=== PATIENT | female | born 1940 | race Caucasian/White ===

== ENCOUNTER → 2016-08-31 | Outpatient (CLI) | payer MEDICARE, OTHER ==
--- NOTE | 2016-08-31 21:15 | MRI ---
MRI left knee without contrast INDICATION: Medial meniscal tear initial encounter recurrent injury TECHNIQUE: Noncontrast MR imaging left knee standard protocol FINDINGS: There is grade 3 chondral fissuring at the patellar apex. Vague grade 3-4 chondrosis in the medial trochlea. Large joint effusion. Intact extensor tendons. Diffuse mucoid degeneration of the ACL indicating previous high-grade partial tear. Similar interstitial previous partial tear of the PCL. There is a diffuse ill-defined relatively horizontal degenerative tear throughout the medial meniscus with free edge fraying throughout and mild volume loss. Multilocular para meniscal cyst formation or less likely ganglion along the medial joint line. Minimal degenerative change lateral meniscus. There is also ganglion/para meniscal cyst formation in the anterior intercondylar region near the central anterior horn medial meniscus. There is diffuse chondrosis up to grade 4 with joint space narrowing medial tibiofemoral compartment with medial extrusion of the medial meniscus. Minimal osteophyte formation lateral tibiofemoral compartment. 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 Electronically signed by: Fabian Skelton MD 08/31/2016 9:13 PM CDT
== END | disposition home or self-care (01) ==
LOC: MRI 08:59
PROVIDERS: ATTEND Specialist
DX: S83.232A Complex tear of medial meniscus, current injury, left knee, initial encounter (principal)

== ENCOUNTER → 2016-12-08 | Outpatient (CLI) | payer MEDICARE, OTHER ==
--- NOTE | 2016-12-10 10:53 | MAM ---
EXAM DESCRIPTION: 3D Screening BILATERAL : Digital Mammography. CLINICAL HISTORY: 76 years Female SCREENING . No complaints. Remote family history of ovarian cancer. Postmenopausal. Currently on HRT. COMPARISON: 2-D digital screening bilateral studies 01/08/2014 and 01/05/2013. No prior reports available. TECHNIQUE: Bilateral CC and MLO projection full-field images, 3-D tomosynthesis digital mammographic technique. Also bilateral synthesized CC/ MLO full-field images. CAD not utilized. FINDINGS: The breast parenchymal density pattern is: Scattered areas of fibroglandular density. No skin thickening or nipple retraction bilateral vascular calcifications. Bilateral solitary microcalcifications. No focal, stellate mass or density, focal asymmetry , and no suspicious microcalcifications bilaterally. Except for minimal increase in calcifications, stable mammograms compared to prior study, December 2012, taking into account differences in mammographic technique IMPRESSION: BI-RADS CATEGORY: 2 - BENIGN FINDINGS. FOLLOW UP: Routine digital bilateral screening, one year interval from November 2016. Written communication explaining the IMPRESSION and follow-up, will be mailed to the patient and referring health care provider. According to the [employer], yearly mammograms are recommended starting at age 40 and continuing as long as a woman is in good health. Any breast change noted on a breast self-exam should be reported promptly to the patient's healthcare provider. Breast MRI is recommended for women with an approximately 20-25% or greater lifetime risk of breast cancer, including women with a strong family history of breast or ovarian cancer and women who have been treated for Hodgkin's disease. A negative mammographic report should not delay tissue diagnosis in patients with significant clinical history or physical findings. Extremely dense breast tissue limits the sensitivity of digital mammography. Electronically signed by: Chucky Landin MD 12/10/2016 10:52 AM CDT
== END ==
LOC: MAMMO 10:49
PROVIDERS: ATTEND Family Medicine
DX: Z12.31 Encounter for screening mammogram for malignant neoplasm of breast (principal)
CPT/HCPCS: 77063; G0202

== ENCOUNTER → 2017-08-26 | Outpatient (CLI) | payer OTHER | LOC: GMAH 16:30 | PROVIDERS: ATTEND Family Medicine | DX: D50.8 Other iron deficiency anemias (principal); R53.82 Chronic fatigue, unspecified; R53.81 Other malaise; R53.1 Weakness ==

== ENCOUNTER → 2017-12-16 | Outpatient (CLI) | payer OTHER ==
--- NOTE | 2017-12-17 11:29 | MAM ---
EXAM DESCRIPTION: 3D Screening BILATERAL : Digital Mammography. CLINICAL HISTORY: 77 years Female SCREENING . No complaints. No personal or family history of breast cancer. Remote family history of ovarian cancer. Childbirth. Postmenopausal almost 30 years. Currently on HRT. Lifetime risk of developing breast cancer (Tyrer-Cuzick model)(%): 3.4 COMPARISON: Bilateral screening digital breast tomosynthesis 12/08/2016. TECHNIQUE: Bilateral CC and MLO projection full-field images, Digital tomosynthesis mammographic technique. Bilateral digital 2-D full-field MLO images. CAD not utilized. FINDINGS: The breast parenchymal density pattern is: Scattered areas of fibroglandular density. No skin thickening or nipple retraction. . Right axillary lymph nodes. Bilateral vascular calcifications. Bilateral solitary microcalcifications and coarse calcifications. No new focal, stellate mass or density, focal asymmetry , and no suspicious microcalcifications bilaterally. Stable mammograms compared to prior study. IMPRESSION: Benign exam. BIRAD CATEGORY: 2 BENIGN FINDINGS. RECOMMENDATIONS: FOLLOW UP: Routine digital bilateral screening, one year interval from November 2017. Written communication explaining the IMPRESSION and follow-up, will be mailed to the patient and referring health care provider. According to the [employer], yearly mammograms are recommended starting at age 40 and continuing as long as a woman is in good health. Any breast change noted on a breast self-exam should be reported promptly to the patient's healthcare provider. Breast MRI is recommended for women with an approximately 20-25% or greater lifetime risk of breast cancer, including women with a strong family history of breast or ovarian cancer and women who have been treated for Hodgkin's disease. A negative mammographic report should not delay tissue diagnosis in patients with significant clinical history or physical findings. Extremely dense breast tissue limits the sensitivity of digital mammography. Electronically signed by: Chucky Landin MD 12/17/2017 11:28 AM CDT
== END ==
LOC: MAMMO 09:30
PROVIDERS: ATTEND Family Medicine
DX: Z12.31 Encounter for screening mammogram for malignant neoplasm of breast (principal)

== ENCOUNTER → 2018-02-04 | Outpatient (CLI) | payer OTHER ==
--- NOTE | 2018-02-05 06:38 | US ---
EXAM DESCRIPTION: Renal: Ultrasound. CLINICAL HISTORY: 77 years Female N18.4 COMPARISON: Bilateral renal arterial Doppler evaluation on the same visit. TECHNIQUE: Transcutaneous scanning: Two-dimensional and Doppler modes. FINDINGS: Right kidney measures 10.5 x 4.1 x 4.8 cm; mid-renal cortical thickness 11.2 mm. . Normal cortical echogenicity. No hydronephrosis No echogenic stones. Smooth contour of the kidney with no perinephric fluid. Normal vascularity. Proximal ureter not visualized. Left kidney measures 9.8 x 5.1 x 5.1 cm; mid-renal cortical thickness 12.7 mm. Normal cortical echogenicity. No hydronephrosis. No echogenic stones. Lobulated contour of the kidney with no perinephric fluid. Normal vascularity.. Proximal ureter not visualized. Urinary bladder not visualized. Abdominal aorta diameter not measured. IMPRESSION: 1. Normal size of the right kidney with minimal cortical thinning. Normal cortical echogenicity and smooth capsule. Otherwise unremarkable. 2. Minimal cortical thinning in the left kidney and decreased size relative to the right kidney. Lobulated contour of the capsule. Less echogenic than the liver and spleen. No hydronephrosis. Electronically signed by: Chucky Landin MD 02/05/2018 6:36 AM [facility]
== END ==
LOC: US 08:41
PROVIDERS: ATTEND Internal Medicine Nephrology
DX: N18.4 Chronic kidney disease, stage 4 (severe) (principal)

== ENCOUNTER 2018-09-26 05:58 | Day surgery (SDC) | payer OTHER ==
[2018-09-26] MEDS ORDERED: LACTATED RINGERS 1,000 ML ONE (08:59)
[2018-09-26] MEDS ORDERED: DEXAMETHASONE INJ 10 MG/ML VIAL IV ONE (10:00)
[2018-09-26] MEDS ORDERED: PROPOFOL 200 MG/20 ML VIAL IV ONE (10:00)
[2018-09-26] MEDS ORDERED: LIDOCAINE 1% 10 ML VIAL INJ ONE (10:00)
[2018-09-26] MEDS ORDERED: BUPIVACAINE 0.5% W/EPI 30 ML VIAL INJ ONE (10:07)
[2018-09-26] MEDS ORDERED: HEPARIN SODIUM 100 U/ML 5 ML SYG IV ONE (10:07)
[2018-09-26] MEDS ORDERED: SODIUM CHLORIDE 0.9% 50 ML VIAL ONE (10:07)
[2018-09-26] MEDS ORDERED: KETAMINE HCL 100 MG/ML VIAL ONE (10:08)
[2018-09-26] MEDS ORDERED: MIDAZOLAM INJ 2 MG/2 ML VIAL ONE (10:09)
[2018-09-26] MEDS ORDERED: fentaNYL CITRATE INJ 50 MCG/ML AMP ONE (10:09)
[2018-09-26] MEDS ORDERED: ceFAZolin SODIUM 1 GM VIAL ONE (10:28)
[2018-09-26] MEDS ORDERED: SODIUM CHL 0.9% 50ML MIN-BAG+ 50 ML IVPB ONE (10:29)
--- NOTE | 2018-09-26 11:38 | OP ---
DATE OF PROCEDURE: 09/26/18 PREOPERATIVE DIAGNOSIS: 1. Multiple myeloma. POSTOPERATIVE DIAGNOSIS: 1. Multiple myeloma. PROCEDURE: 1. Placement of Port-A-Cath, right internal jugular approach with ultrasound guidance. 2. Access of Port-A-Cath. SURGEON: Andres Savage MD. ANESTHESIA: General and local. FINDINGS: There was excellent position of catheter on fluoroscopy and good flow. The port was accessed also without difficulty and flushed with heparinized saline. COMPLICATIONS: None. ESTIMATED BLOOD LOSS: None. CONDITION: Stable. PLAN: Discharge. INDICATION: The patient presented with multiple myeloma in need of venous access for chemotherapy. She was consented. PROCEDURE: General anesthesia was induced. She was prepped and draped in sterile fashion. 0.5% Marcaine with epinephrine was used along the incision sites. The ultrasound was used to identify the dominant jugular vein. A single stick was necessary to access the vein with withdrawal of nice, dark blood. The wire was then introduced without difficulty. Fluoroscopy confirmed proper position of the wire. We then prepared the chest site. I made a cut lateral to the wire and undermined to allow for curvature of the catheter. The introducer dilator was then placed and removed as the trimmed catheter was placed over the wire without difficulty. We confirmed proper position of the tip at about 15 cm at the neck. It was then mated to the tunnel and tunneled down to the port pocket site. It was then flush, flowing nicely, trimmed, mated and then locked into the port with the supplied lock mechanism. It was then placed into the pocket. A final x-ray was performed which revealed no kinking of the catheter at the chest and the tip was in good position. It was secured medially with a single Prolene suture. There was good flow. The access needle was then introduced. Again, good withdrawal of dark blood. It was then flushed with heparinized saline solution. She tolerated the procedure well. The wounds were closed in 2 layers with Vicryl and the access remained in place. She was then awakened and taken to Recovery to be discharged. #[id number]
[2018-09-26 12:30] VITALS: BP 137/74; TEMP 97.4; O2SAT 96
--- NOTE | 2018-09-27 09:50 | RAD ---
PROVIDED CLINICAL HISTORY/REASON FOR EXAM: PORT PLACEMENT Findings/impression: One intraoperative fluoroscopic image of a chest wall port placement. Tip location unable to be determined. Dose: Not provided Time: Less than one hour Electronically signed by: Dariel Coronado MD 09/27/2018 9:48 AM CDT
== END 2018-09-26 12:35 | disposition home or self-care (01) ==
LOC: AMB 05:58
PROVIDERS: ATTEND Surgery
DX: C90.00 Multiple myeloma not having achieved remission (principal); Z90.710 Acquired absence of both cervix and uterus; Z96.651 Presence of right artificial knee joint
CPT/HCPCS: 00532; 36416; 36561; 76000; 82948; A4216; C1788; J0690; J1100; J1642; J2250; J3010; J3490; J7050; J7120

== ENCOUNTER → 2018-10-28 | Outpatient (CLI) | payer OTHER | LOC: LAB.O 07:15 | PROVIDERS: ATTEND Internal Medicine Nephrology | DX: I10 Essential (primary) hypertension (principal) ==

== ENCOUNTER 2019-01-30 05:10 | Day surgery (SDC) | payer OTHER ==
[2019-01-30] MEDS ORDERED: MIDAZOLAM INJ 2 MG/2 ML VIAL ONE (10:57)
[2019-01-30] MEDS ORDERED: BRIMONIDINE 0.2% OPHTH DROPS RIGHT_EYE ONE (10:58)
[2019-01-30] MEDS ORDERED: PROPARACAINE 0.5% OPHTH SOL 15 ML BTTL RIGHT_EYE ONE (10:58)
[2019-01-30] MEDS ORDERED: TOBRAMYCIN SULF 0.3 % OPHT SOL 1 DROP RIGHT_EYE ONE (10:58)
[2019-01-30] MEDS ORDERED: DEXAMETHASONE 0.1% OPHTH SOL 1 DROP RIGHT_EYE ONE (10:58)
[2019-01-30] MEDS ORDERED: LIDOCAINE 1% 2 ML VIAL INJ ONE (11:09)
[2019-01-30] MEDS ORDERED: MOXIFLOXACIN HCL (OPHTH) 1 DROP DROPS RIGHT_EYE ONE (11:09)
== END 2019-01-30 11:55 | disposition home or self-care (01) ==
LOC: AMB 05:10
PROVIDERS: ATTEND Ophthalmology
DX: E11.36 Type 2 diabetes mellitus with diabetic cataract (principal); H25.041 Posterior subcapsular polar age-related cataract, right eye; Z79.899 Other long term (current) drug therapy
CPT/HCPCS: 00142; 36416; 66984; 82948; J2250

== ENCOUNTER 2019-02-20 05:28 | Day surgery (SDC) | payer OTHER ==
[2019-02-20] MEDS ORDERED: MIDAZOLAM INJ 2 MG/2 ML VIAL ONE (10:10)
[2019-02-20] MEDS: PROPARACAINE 0.5% OPHTH SOL 15 ML BTTL LEFT_EYE ONE (10:14)
[2019-02-20] MEDS: LIDOCAINE 1% MPF 2 ML VIAL INJ ONE (10:20)
[2019-02-20] MEDS: DEXAMETHASONE 0.1% OPHTH SOL 1 DROP LEFT_EYE ONE ×2 (10:25→10:33)
[2019-02-20] MEDS: MOXIFLOXACIN HCL (OPHTH) 1 DROP DROPS LEFT_EYE ONE ×2 (10:25→10:33)
[2019-02-20] MEDS: TOBRAMYCIN SULF 0.3 % OPHT SOL 1 DROP LEFT_EYE ONE ×2 (10:25→10:33)
[2019-02-20] MEDS: BRIMONIDINE 0.2% OPHTH DROPS LEFT_EYE ONE ×2 (10:26→10:33)
== END 2019-02-20 13:23 | disposition home or self-care (01) ==
LOC: AMB 05:28
PROVIDERS: ATTEND Ophthalmology
DX: E11.36 Type 2 diabetes mellitus with diabetic cataract (principal); H25.042 Posterior subcapsular polar age-related cataract, left eye; Z79.899 Other long term (current) drug therapy
CPT/HCPCS: 00142; 36416; 66984; 82948; J2250

== ENCOUNTER 2020-02-13 11:20 | Emergency (ER) | payer OTHER ==
[2020-02-13 11:40] VITALS: TEMP 97.7
--- NOTE | 2020-02-13 12:17 | RAD ---
EXAM DESCRIPTION: Chest,1 View CLINICAL HISTORY: feeling poorly after covid 14 days COMPARISON: Chest radiograph dated July 17, 2018 TECHNIQUE: One view radiograph of the chest FINDINGS: Right [id number] with distal tip projecting over the SVC. Cardiac silhouette shows normal heart size. Pulmonary vascularity is within normal limits. Interval resolution of left upper lobe consolidation. Minimal linear opacity in the right lung base most compatible with atelectasis. Otherwise, lungs show no confluent infiltrates. No significant pleural effusion. No pneumothorax. Degenerative changes of the thoracic spine. IMPRESSION: 1. Interval resolution of left upper lobe consolidation. 2. Minimal right basilar atelectasis. Otherwise, lungs show no confluent infiltrates. 3. Other findings as above. Electronically signed by: Nacho Carmichael MD 02/13/2020 12:15 PM [facility]
[2020-02-13] MEDS ORDERED: INSULIN DETEMIR 100 UNITS/ML PEN SUBCU ONE (12:46)
[2020-02-13] MEDS ORDERED: SODIUM CHLORIDE 0.9% 1000ML 1,000 ML IVS ONE (12:46)
--- NOTE | 2020-02-13 13:39 | ED.PDOC ---
History of Present Illness - General Chief Complaint: General Stated Complaint: COVID+,fever,nausea Time Seen by Provider: 02/13/20 11:41 Source: patient Exam Limitations: no limitations - History of Present Illness Initial Comments: The patient is a 79-year-old female presented emergency room secondary to feeling dehydrated and simply not feeling good. She does have long-term gastrointestinal upset that is been made a little bit worse the coronavirus. She was apparently diagnosed with coronavirus on the eighth of this month. She does take every other day dexamethasone for her other long-term medical processes. She does likely have some mild adrenal insufficiency. Blood sugars have been more elevated than normal since increasing her dexamethasone dose to every other day. She is not short of breath and does not have a significant cough. No real urinary symptoms. No syncope. Timing/Duration: unsure Severity: moderate Improving Factors: nothing Worsening Factors: nothing Associated Symptoms: loss of appetite, malaise, nausea/vomiting, weakness Allergies/Adverse Reactions: Allergies Bacitracin [From Neosporin] Allergy (Unknown, Verified 02/20/19 09:33) Methotrexate Allergy (Unknown, Verified 02/20/19 09:33) Morphine Allergy (Unknown, Verified 02/20/19 09:33) Neomycin [From Neosporin] Allergy (Unknown, Verified 02/20/19 09:33) Polymyxin B [From Neosporin] Allergy (Unknown, Verified 02/20/19 09:33) Enoxaparin [From Lovenox] Allergy (Verified 02/20/19 09:33) Dha Ethyl Michelle [From Omacor] Adverse Reaction (Unknown, Verified 02/20/19 09:33) Ezetimibe [From Zetia] Adverse Reaction (Unknown, Verified 02/20/19 09:33) Fenofibrate Adverse Reaction (Unknown, Verified 02/20/19 09:33) Gemfibrozil Adverse Reaction (Unknown, Verified 02/20/19 09:33) Icosapent Ethyl [From [place]or] Adverse Reaction (Unknown, Verified 02/20/19 09:33) Leflunomide [From Arava] Adverse Reaction (Unknown, Verified 02/20/19 09:33) Linagliptin [From Tradjenta] Adverse Reaction (Unknown, Verified 02/20/19 09:33) Losartan Adverse Reaction (Unknown, Verified 02/20/19 09:33) Meloxicam Adverse Reaction (Unknown, Verified 02/20/19 09:33) Metoprolol [From Toprol XL] Adverse Reaction (Unknown, Verified 02/20/19 09:33) Niacin [From Niaspan] Adverse Reaction (Unknown, Verified 02/20/19 09:33) Oienb-0-Pbnh Ethyl Esters [From [place]or] Adverse Reaction (Unknown, Verified 02/20/19 09:33) Pantoprazole [From Protonix] Adverse Reaction (Unknown, Verified 02/20/19 09:33) Peanut-containing Drug Products Adverse Reaction (Unknown, Verified 02/20/19 09:33) Soybean Oil [From [place]or] Adverse Reaction (Unknown, Verified 02/20/19 09:33) Vitamin E [From [place]] Adverse Reaction (Unknown, Verified 02/20/19 09:33) Statins Adverse Reaction (Verified 02/20/19 09:33) Tomato Adverse Reaction (Verified 02/20/19 09:33) DECONGESTANTS Adverse Reaction (Unknown, Uncoded 02/20/19 09:33) HYDROXICHLOR Adverse Reaction (Unknown, Uncoded 02/20/19 09:33) SULPHASALAZINE Adverse Reaction (Unknown, Uncoded 02/20/19 09:33) Home Medications: Ambulatory Orders Dexamethasone 4 mg PO JA-OTH-DAY 07/14/18 Glipizide 10 mg PO BID 07/14/18 Acetaminophen 1 tablet PO BEDTIME PRN 09/26/18 Multiple Vitamins W/ Minerals [Multivitamin Adults] 1 tab PO DAILY 09/26/18 Famciclovir 250 mg PO BID 01/30/19 Ondansetron HCl [Zofran] 4 mg PO PRN PRN 01/30/19 Promethazine HCl 25 mg PO PRN PRN 01/30/19 Acetaminophen [Tylenol] 325 mg PO PRN 02/13/20 Bioflavonoid Products [Michelle-C] 1 tab PO DAILY 02/13/20 Carvedilol [Coreg] 3.125 mg PO BID 02/13/20 Ciprofloxacin [Cipro] 500 mg PO BID #10 tab 02/13/20 Cyanocobalamin Inj [Vitamin B-12 Inj] 1,000 mcg IM .[id number] 02/13/20 Daratumumab [Darzalex] 100 mg IV .[id number] 02/13/20 Guaifenesin [Mucinex] 600 mg PO PRN 02/13/20 Insulin Detemir [Levemir] 12 unit SUBCU ACBK #2 pen 02/13/20 Loperamide HCl 2 mg PO PRN 02/13/20 diphenhydrAMINE HCL [Benadryl] 25 mg PO PRN 02/13/20 Review of Systems - Review of Systems Constitutional: States: malaise EENTM: States: no symptoms reported Respiratory: States: no symptoms reported Cardiology: States: no symptoms reported Gastrointestinal/Abdominal: States: nausea Genitourinary: States: no symptoms reported Musculoskeletal: States: see HPI - She does have chronic arthralgias and myalgias Skin: States: no symptoms reported Neurological: States: no symptoms reported Endocrine: States: no symptoms reported All other Systems: No Change from Baseline Past Medical History (General) - Patient Medical History Hx Seizures: No Hx Stroke: No Hx Asthma: No Hx of COPD: No Hx Cardiac Disorders: Yes Hx Congestive Heart Failure: No Hx Pacemaker: No Hx Hypertension: No Hx Diabetes: Yes Hx Renal Disease: Yes - Stage 3 Hx MRSA: No MRSA Source:: TEST Surgical History: Hysterectomy - Vaccination History Hx Influenza Vaccination: Yes Hx Pneumococcal Vaccination: Yes - Social History Hx Tobacco Use: No Hx Alcohol Use: No Hx Substance Use: No Hx Physical Abuse: No Hx Emotional Abuse: No Family Medical History - Family History Mother Hx Family Asthma: No Hx Family Congestive Heart Failure: No Hx Family Hypertension: No Hx Family Stroke: No Hx Cardiac Disease: No Hx Family Diabetes: No Hx Family Cancer: No Father Hx Family Asthma: No Hx Family Congestive Heart Failure: No Hx Family Hypertension: Yes Hx Family Stroke: No Hx Cardiac Disease: No Hx Family Diabetes: No Hx Family Cancer: No Physical Exam - Physical Exam General Appearance: Alert, No apparent distress Eye Exam: bilateral normal Ears, Nose, Throat: hearing grossly normal, normal pharynx Neck: full range of motion, supple Respiratory: lungs clear, normal breath sounds, no respiratory distress, no accessory muscle use Cardiovascular/Chest: normal peripheral pulses, regular rate, rhythm - Borderline tachycardia, no edema Peripheral Pulses: radial,right: 2+, radial,left: 2+ Gastrointestinal/Abdominal: non tender, soft Rectal Exam: deferred Extremity: no pedal edema, no calf tenderness, normal capillary refill, other - Chronic arthritic changes and pain associated with it along with chronic limitations to range of motion due to arthritis Neurologic: performance engineer II-XII nml as tested, alert, normal mood/affect, oriented x 3 Skin Exam: normal color Comments: Vital Signs - 24 hr 02/13/20 02/13/20 02/13/20 11:33 12:16 12:17 Temperature 97.7 F Pulse Rate [ 113 H 92 H 107 H Right Brachial] Respiratory 20 Rate Blood Pressure 180/105 146/79 128/83 [Right Arm] O2 Sat by Pulse 95 Oximetry 02/13/20 13:16 Temperature Pulse Rate [ 95 H Right Brachial] Respiratory 16 Rate Blood Pressure 136/89 [Right Arm] O2 Sat by Pulse 92 L Oximetry Progress - Progress Progress: 02/13/20 13:41 The patient is a 79-year-old female presenting secondary to generalized worsening of symptoms since her diagnosis of coronavirus on the eighth of this month. The patient does have some dehydration and is receiving a liter of IV fluids. She also has significant hypoglycemia. She is going to be written for the Levemir and I want her to start taking 12 units each morning with breakfast. Hopefully this will provide better blood sugar control than the short acting insulin she has been taking. Additionally the patient does likely have some mild adrenal insufficiency and I am going to have her start taking her dexamethasone alternating 4 mg and 2 mg daily for at least the next week and 1/2 to 2 weeks. Hopefully this will help reduce symptoms of mild steroid deficiency. She does of course need to monitor blood sugars fairly closely. Keep well-hydrated. Keep follow-up with primary care doctor and specialist as previously scheduled. She does have a small urinary tract infection is going to be placed on low-dose ciprofloxacin for 5 days. She does need to have a repeat urinalysis in about a week. ER warnings are given. bradley delgado [phone] - Results/Orders Results/Orders: 02/13/20 11:45 EKG STAT normal sinus rhythm at 95 bpm. Normal axis. Normal R wave progression. No ST segment or T wave changes indicative of acute ischemia. Possible mild left atrial dilation. Borderline prolonged QT interval. Chest x-ray shows significant improvement since the one from 2019. No obvious acute active processes. See report for details. Laboratory Results - last 24 hr 12/02/13/20 02/13/20 12:05 12:05 12:05 WBC 6.8 RBC 4.11 L Hgb 12.6 Hct 36.9 MCV 89.7 MCH 30.7 MCHC 34.3 RDW 13.9 Plt Count 364 MPV 7.1 L Absolute Neuts (auto) 5.80 Absolute Lymphs (auto) 0.70 L Absolute Monos (auto) 0.20 Absolute Eos (auto) 0.00 Absolute Basos (auto) 0.00 Neutrophils % 85.5 H Lymphocytes % 10.7 L Monocytes % 3.1 Eosinophils % 0.1 L Basophils % 0.6 Sodium 132 L Potassium 4.3 Chloride 96 L Carbon Dioxide 19 L Anion Gap 21.3 H BUN 15 Creatinine 1.00 BUN/Creatinine Ratio 15.0 Random Glucose 326 H Serum Osmolality 278.0 Lactic Acid 1.9 Calcium 8.8 Magnesium 2.0 Total Bilirubin 1.0 AST 28 ALT 36 Alkaline Phosphatase 90 Creatine Kinase 20 L CK-MB (CK-2) 1.0 CK-MB (CK-2) % Not Reportable Troponin I < 0.02 B-Natriuretic Peptide 107.0 H Serum Total Protein 7.2 Albumin 3.4 Globulin 3.8 H Albumin/Globulin Ratio 0.9 L Amylase 38 Lipase 28 TSH 0.64 Urine Color Urine Appearance Urine pH Ur Specific [place] Urine Protein Urine Glucose (UA) Urine Ketones Urine Blood Urine Nitrite Urine Bilirubin Urine Urobilinogen Ur Leukocyte Esterase Urine RBC Urine WBC Ur Epithelial Cells Amorphous Sediment Urine Bacteria Urine Mucus 02/13/20 12:55 WBC RBC Hgb Hct MCV MCH MCHC RDW Plt Count MPV Absolute Neuts (auto) Absolute Lymphs (auto) Absolute Monos (auto) Absolute Eos (auto) Absolute Basos (auto) Neutrophils % Lymphocytes % Monocytes % Eosinophils % Basophils % Sodium Potassium Chloride Carbon Dioxide Anion Gap BUN Creatinine BUN/Creatinine Ratio Random Glucose Serum Osmolality Lactic Acid Calcium Magnesium Total Bilirubin AST ALT Alkaline Phosphatase Creatine Kinase CK-MB (CK-2) CK-MB (CK-2) % Troponin I B-Natriuretic Peptide Serum Total Protein Albumin Globulin Albumin/Globulin Ratio Amylase Lipase TSH Urine Color Yellow Urine Appearance Cloudy Urine pH 5.5 Ur Specific [place] 1.015 Urine Protein 30 Urine Glucose (UA) 500 H Urine Ketones 80 H Urine Blood Negative Urine Nitrite Negative Urine Bilirubin Small H Urine Urobilinogen 0.2 Ur Leukocyte Esterase Small H Urine RBC 0 Urine WBC 10-20 H Ur Epithelial Cells 5-10 Amorphous Sediment Trace Urine Bacteria 1+ Urine Mucus Trace Departure - Departure Clinical Impression: Cystitis, Dehydration, Steroid dependence Uncontrolled diabetes mellitus Qualifiers: Diabetes mellitus type: type 2 Glycemic state: with hyperglycemia Qualified Code(s): E11.65 - Type 2 diabetes mellitus with hyperglycemia Disposition: Discharge to Home or Self Care Condition: Fair Departure Forms: ED Discharge - Pt. Copy, Patient Portal Self Enrollment Instructions: Type 2 Diabetes Diet: diabetic diet Activity: increase activity as tolerated Referrals: Ernesto Gusman MD [Primary Care Provider] - 1-2 Weeks Prescriptions: Ciprofloxacin [Cipro] 500 mg PO BID #10 tab Insulin Detemir [Levemir] 12 unit SUBCU ACBK #2 pen Home Medications: Ambulatory Orders Dexamethasone 4 mg PO JA-OTH-DAY 07/14/18 Glipizide 10 mg PO BID 07/14/18 Acetaminophen 1 tablet PO BEDTIME PRN 09/26/18 Multiple Vitamins W/ Minerals [Multivitamin Adults] 1 tab PO DAILY 09/26/18 Famciclovir 250 mg PO BID 01/30/19 Ondansetron HCl [Zofran] 4 mg PO PRN PRN 01/30/19 Promethazine HCl 25 mg PO PRN PRN 01/30/19 Acetaminophen [Tylenol] 325 mg PO PRN 02/13/20 Bioflavonoid Products [Michelle-C] 1 tab PO DAILY 02/13/20 Carvedilol [Coreg] 3.125 mg PO BID 02/13/20 Ciprofloxacin [Cipro] 500 mg PO BID #10 tab 02/13/20 Cyanocobalamin Inj [Vitamin B-12 Inj] 1,000 mcg IM .[id number] 02/13/20 Daratumumab [Darzalex] 100 mg IV .[id number] 02/13/20 Guaifenesin [Mucinex] 600 mg PO PRN 02/13/20 Insulin Detemir [Levemir] 12 unit SUBCU ACBK #2 pen 02/13/20 Loperamide HCl 2 mg PO PRN 02/13/20 diphenhydrAMINE HCL [Benadryl] 25 mg PO PRN 02/13/20 Additional Instructions: The patient is a 79-year-old female presenting secondary to generalized worsening of symptoms since her diagnosis of coronavirus on the eighth of this month. The patient does have some dehydration and is receiving a liter of IV fluids. She also has significant hypoglycemia. She is going to be written for the Levemir and I want her to start taking 12 units each morning with breakfast. Hopefully this will provide better blood sugar control than the short acting insulin she has been taking. Additionally the patient does likely have some mild adrenal insufficiency and I am going to have her start taking her dexamethasone alternating 4 mg and 2 mg daily for at least the next week and 1/2 to 2 weeks. Hopefully this will help reduce symptoms of mild steroid deficiency. She does of course need to monitor blood sugars fairly closely. Keep well-hydrated. Keep follow-up with primary care doctor and specialist as previously scheduled. She does have a small urinary tract infection is going to be placed on low-dose ciprofloxacin for 5 days. She does need to have a repeat urinalysis in about a week. ER warnings are given.
[2020-02-13 14:07] VITALS: BP 149/89; O2SAT 94
== END 2020-02-13 14:06 | disposition home or self-care (01) ==
LOC: ER 11:20
DX: N30.90 Cystitis, unspecified without hematuria (principal); E86.0 Dehydration; E11.65 Type 2 diabetes mellitus with hyperglycemia; U07.1 COVID-19; I51.9 Heart disease, unspecified; N18.30 Chronic kidney disease, stage 3 unspecified; E11.22 Type 2 diabetes mellitus with diabetic chronic kidney disease; Z79.52 Long term (current) use of systemic steroids; Z79.899 Other long term (current) drug therapy; Z79.4 Long term (current) use of insulin; Z88.8 Allergy status to other drugs, medicaments and biological substances; Z88.5 Allergy status to narcotic agent
CPT/HCPCS: 71045; 80053; 81001; 82150; 82550; 82553; 83605; 83690; 83735; 83880; 84443; 84484; 85025; 87086; 93005; 96360; 96372; 99284; J1815; J7030